=== PATIENT | female | born 1985 | race Caucasian/White ===

== ENCOUNTER 2018-10-07 18:57 | Emergency (ER) | payer OTHER ==
[~2018-10-07] VITALS: Ht 160 cm; Wt 91.6 kg
[~2018-10-07 18:57] MED LIST: ABILIFY10 MG PO; ACCUNEB SO1.25 MG/1; ALBUTEROL INHAL17 GM IH; ALBUTEROL2.5 MG/0.1 IH; ALBUTEROL2.5 MG/31 IH; AMOXICILLIN 50500 MG PO; AZITHROMYCIN 2250 MG PO; BUTALB-ACETAMI1 EACH PO; CLEOCIN HCL300 MG PO; CLONAZEPAM; COMBIVENT RESPIM4 GM IH; CYMBALTA30 MG PO; DESYREL100 MG PO; DOXYCYCLINE 10100 MG PO; FLAGYL500 MG PO; HYDROCODONE-AC120 ML PO; JOLESSA1 EACH; JOLESSA1 EACH PO; LUNESTA; MAXALT MLT ODT10 M1; METFORMIN; NAPROSYN500 MG PO; NORCO 5-325 TA1 EACH PO; OSELB75 PO; PENICILLIN VK250 MG PO; PREDNISONE 20 M20 MG PO; PREDNISONE50 MG PO; PRISTIQ50 M1 PO; PRISTIQ50 MG PO; PROAIR HFA8.5 GM IH; SEROQUEL XR 20200 MG PO; SEROQUEL200 MG PO; TESSALON200 MG PO; TRICOR; TUSSIONEX PENN473 ML PO; ULTRAM 50MG TAB50 MG PO; VALIUM5 MG PO; VENTOLIN17 GM INH; VERAPAMIL ER180 MG PO; VIIBRYD10 MG; ZOFRAN4 MG PO; ZPAK PO; [UNRECOGNIZED DRUG - OTHER]
[2018-10-07 20:32] LABS: ABSOLUTE NEUTROPHILS 4.4 thou/uL (1.4-8.2); BASOPHILS 0.8 % (0.0-2.0); EOSINOPHILS 0.3 % (0.0-3.0); HEMATOCRIT 41.3 % (37.0-47.0); HEMOGLOBIN 13.6 gm/dL (12.0-15.0); LYMPHOCYTES 19.7 % (24.0-44.0); MCV 84.8 fL (80.0-100.0); MONOCYTES 6.4 % (1.0-8.0); PLATELET COUNT 150 thou/uL (150-400); POLYS 72.8 % (36.0-66.0); RBC 4.87 mil/uL (4.20-5.00); WBC 6.1 thou/uL (4.0-11.0)
[2018-10-07 20:36] LABS: URINE BILIRUBIN NEGATIVE (Negative); URINE BLOOD NEGATIVE (Negative); URINE COLOR YELLOW; URINE GLUCOSE-RANDOM* NEGATIVE (Negative); URINE KETONES NEGATIVE (Negative); URINE LEUKOCYTES-REFLEX NEGATIVE (Negative); URINE NITRITE-REFLEX NEGATIVE (Negative); URINE PROTEIN (DIPSTICK) 1+ (Negative); URINE UROBILINOGEN 0.2 E.U./dl (0.2-1.0)
[2018-10-07 20:37] LABS: URINE CLARITY CLOUDY
[2018-10-07 20:43] LABS: SQUAMOUS 4-10 Moderate /LPF (0-3)
[2018-10-07 20:43] LABS: CALCIUM 8.9 mg/dL (8.5-10.1); CREATININE 0.9 mg/dL (0.6-1.0); POTASSIUM 4.3 mmol/L (3.5-5.1)
[2018-10-07 20:44] LABS: AMORPHOUS URATES Many /LPF (None Seen); CASTS None Seen /LPF (None Seen); URINE RBC None Seen /HPF (0-2); URINE WBC-REFLEX 0-5 Rare /HPF (0-5)
[2018-10-07 20:49] LABS: ALBUMIN 3.5 g/dL (3.4-5.0); TOTAL BILIRUBIN 0.2 mg/dL (<0.1-1.0); TOTAL PROTEIN 7.6 g/dL (6.4-8.2)
[2018-10-07 20:58] LABS: AMP/METHAMP Negative (Negative); BARBITURATES Negative (Negative); BENZODIAZEPINES Negative (Negative); COCAINE Negative (Negative); METHADONE Negative (Negative); OPIATES Negative (Negative); PCP Negative (Negative)
[2018-10-07] MEDS ORDERED: VENTOLIN HFA 1818 GM INH (21:57)
[2018-10-07] MEDS ORDERED: TESSALON PERLE100 MG PO (21:57)
[2018-10-07] MEDS ORDERED: AZITHROMYCIN 2250 MG PO (21:57)
[2018-10-07 23:44] VITALS: BP 98/58
== END 2018-10-07 23:49 | disposition home or self-care (01) ==
LOC: ER 18:57
PROVIDERS: Physician Assistant
DX: J18.9 Pneumonia, unspecified organism (principal); R50.9 Fever, unspecified; F31.9 Bipolar disorder, unspecified; F41.9 Anxiety disorder, unspecified; J44.9 Chronic obstructive pulmonary disease, unspecified; F17.210 Nicotine dependence, cigarettes, uncomplicated; Z88.5 Allergy status to narcotic agent; Z88.8 Allergy status to other drugs, medicaments and biological substances